=== PATIENT | male | born 1940 | race Caucasian/White ===

== ENCOUNTER 2017-08-31 13:33 | Day surgery (SDC) | payer MEDICARE, OTHER, SELFPAY ==
[2017-08-24 12:03] VITALS: BMI 52.4
[2017-08-31] VITALS (11 sets, daily range): BP systolic 128–176; BP diastolic 70–96; PULSE 64–124; RESP 16–20; TEMP 36.4–36.9; O2SAT 92–98; BMI 23.6
--- NOTE | 2017-08-31 09:55 | SUR.OPER ---
Prone on spine table, head in foam head support, padded chest and pelvic supports, gel pad at knees, lower legs supported by pillows; nipples, genitalia and toes free of pressure, arms secured on foam padded arm boards at <90 degrees abduction. Tape over blanket at thigh secured to table.
[2017-08-31] MEDS: LACTATED RINGERS 1,000 ML 42 ML IV ×2 (14:28→16:44)
--- NOTE | 2017-08-31 15:28 | PM.PREOP ---
Pre-operative Note Interval Note Pre-op Check: History & Physical Reviewed by Physician, Exam Performed and History & Physical exam performed today
[2017-08-31] MEDS: CEFAZOLIN 2 GM/100 ML FROZ.PIGGY IV ×2 (15:29→23:45)
--- NOTE | 2017-08-31 15:55 | SUR.OPER ---
Prone on spine table, head in foam head support, padded chest and pelvic supports, gel pad at knees, lower legs supported by pillows; nipples, genitalia and toes free of pressure, arms secured on foam padded arm boards at <90 degrees abduction. Tape over blanket at thigh secured to table.left sided port padded with memory foam padding to protect skin from pressure during prone positioning
--- NOTE | 2017-08-31 16:00 | DI.RAD.S_ITS ---
PROCEDURE: XR LUMBAR SPINE 1V INDICATIONS: L3-4 LAMINECTOMY TECHNIQUE: 1 views of the lumbar spine were acquired. COMPARISON: [facility], MR, MR LUMBAR SPINE WITHOUT CONTRAST, 03/15/2017, 11:17. FINDINGS: Lateral view of the lumbar spine performed in the operating room demonstrates a radiopaque surgical probe projected over the posterior elements at the L3 level. IMPRESSION: Surgical probe projected over the posterior elements at the L3 level for operative planning. Dictated by: Luis MUELLER Interpreted: Romel Montanez MD on 08/31/2017 at 16:14 Approved by: Misbah Montanez M.D. on 08/31/2017 at 16:37
[2017-08-31] MEDS: BUPIVACAINE 0.25% W/ EPI 50 ML VIAL INJ (16:04)
--- NOTE | 2017-08-31 16:59 | P.OP_ITS ---
Operative Date/Time/Diagnoses - Date of procedure: 08/31/17 Time of procedure: 14:51 Pre-op diagnosis: 1. L3-4 spinal stenosis 2. Neurogenic claudication Post-op diagnosis: same Procedure & Clinicians Procedure: 1. L3-4 laminectomy with bilateral partial facetecomies 2. Utilization of microsurgical technique and operating microscope Same procedure as scheduled: Yes Indications: Patient has been having chronic back pain and worsening lumbar radiculopathy. Patient failed multiple conservative management with worsening pain weakness and numbness in her lower extremity. Patient has been having difficulty performing activity of daily living. After discussing risks benefits of treatment options, patient elected proceed with surgery. Surgeon: Yumiko Benavides Senior Windows Engineer: Marisa Marinelli Click Yes if Unassisted: No Anesthesia Type: General Operative Notes Closure Type: primary Specimen(s): none sent Estimated Blood Loss (mL): 50 Blood products transfused: none Procedure in detail: Patient was seen in the preoperative area. Risks and benefits of the surgery was discussed with the patient. Informed consent was obtained from the patient and placed in the chart. Surgical site was marked. Patient was taken to the operative room. General anesthesia was administered. Prophylactic antibiotic was given to the patient less than 30 min before the incision was made. Patient was placed into a prone position on the Jonh table. Patient's back was then prepped and draped in the sterile fashion. Time- out was performed at this time. Using AP and lateral C-arm imaging the interval between L3-4 was identified and marked on patient's back. A 2 inch incision in the midline was made over the L3 -4 interval. The fascia was incised in line with skin incision. Self retaining retractors was placed inside the incision after dissecting down to the level of the lamina with holm and bovie. Using microsurgical technique and operating microscope, a L3-4 laminectomy was performed using a Kerrison rongeur and a drill. Liagamentum flavum was resected at the site of the laminotomy. Either side of the dura was exposed. Bilateral partial facetcomies was performed to further decompress the lateral recess. Patient has severe thecal sac compression from the hypertrophied ligamentum flavum which was fully resected at the site of the laminectomy. Patient's thecal sac and bilateral lateral recess was fully decompressed when the laminectomy was completed. After the laminectomy was completed, the area medial lateral superior and inferior to the area of the laminectomy was inspected and explored using a micro curette. No other impinging structure was identified. The wound was then irrigated with sterile normal saline. The deep fascia was closed with 1-0 Vicryl. The subcutaneous tissue was closed with 2-0 Vicryl. The skin was closed with 3-0 nylon suture. Patient tolerated the procedure well. There were no complications. Patient was transferred recovery room in stable condition. Complications: none Condition: stable Disposition: Acute Care Plan for aftercare: Admit overnight
[2017-08-31] MEDS: SODIUM CHLORIDE 0.9% 1,000 ML 100 ML IV (18:06)
[2017-08-31] MEDS: OXYCODONE IR 5 MG TABLET PO ×2 (20:03→23:35)
[2017-08-31] MEDS: ALPRAZolam 0.25 MG TABLET 0.125 MG PO (21:05)
[2017-08-31] MEDS: ROPINIROLE 1 MG TABLET PO (21:05)
--- NOTE | 2017-08-31 22:20 | PC.NURSE ---
POST-OP Received pt at approximately 4730 via bed, accompanied by ERP ANALYST. A&Ox3, pleasant and cooperative with care. states some very mild numbness with LLE initially which has now resolved. pt very mobile, able to ambulate with 1P SBA to bathroom and in hallways. no complaints of nausea, tolerating PO intake without difficulties. c/o minimal incisional pain, rated 4/10, medicated with PRN oxycodone. back dressing CDI. pt requesting to have MIVF decreased since he is taking PO intake very well. pt also requesting to be assessed by PT first thing in the morning for soonest possible D/C home tomorrow.
[2017-08-31] MEDS: SODIUM CHLORIDE 0.9% FLUSH 10 ML IV (23:45)
--- NOTE | 2017-08-31 23:52 | PC.NURSE ---
Addendum entered by Olga Galvan R.N. 09/01/17 03:31: Patient complains of 6/10 back pain and not able to get comfortable. Discussed med options, IV vs po, since patient is hoping to DC today. Patient determined he needed IV Dilaudid at this time and then will try to switch to po Oxycodone in couple hours. Original Note: Addendum entered by Olga Galvan R.N. 09/01/17 01:27: Upon reassessment earlier for pain patient stated his pain was unchanged and requesting additional pain meds. Medicated with Vistaril and patient also insisted he take ordered IV Dilaudid. Currently states his pain is 2/10 and very tolerable. Original Note: Alert and oriented. Breath sounds CTA with RA sat of 95-96%. HRR. Denies nausea. BT hypoactive but states he is passing flatus. Denies dysuria or urgency but complains of frequency related to IVF continuous infusion. Independent with bed mobility and SBA when up to bathroom. Dressing to back is CDI. States back pain currently 5/10; medicated with Oxycodone but refused ice pack. 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 Fall risk score is medium and bed alarm is activated. Hoping to DC in morning.
[2017-09-01] MEDS: hydrOXYzine pamoate 25 MG CAPSULE PO ×2 (00:22→05:29)
[2017-09-01] MEDS: HYDROMORPHONE 0.5 MG INJ IV ×2 (00:25→03:26)
[2017-09-01] MEDS: SODIUM CHLORIDE 0.9% FLUSH 10 ML IV ×3 (00:25→08:19)
[2017-09-01] MEDS: OXYCODONE IR 5 MG TABLET PO ×2 (05:29→10:54)
[2017-09-01 05:32] VITALS: BP 140/91; PULSE 70; RESP 16; TEMP 36.6; O2SAT 95
[2017-09-01 06:33] LABS: Hematocrit 36.5 % (41-53); Hemoglobin 12.1 g/dL (13.5-17.5)
[2017-09-01] MEDS: LISINOPRIL 20 MG TABLET PO (08:11)
[2017-09-01] MEDS: CEFAZOLIN 2 GM/100 ML FROZ.PIGGY IV (08:12)
[2017-09-01] MEDS: DOCUSATE 100 MG CAPSULE PO (08:12)
--- NOTE | 2017-09-01 09:39 | OT.IP.TRT ---
Current Diagnoses Spinal stenosis, lumbar region without neurogenic claudication (08/31/17) Surgery Performed Operation Date: 08/31/17 15:45 Actual Procedures p L3-4 Laminectomy - Yumiko Benavides MD Occupational Therapy Treatment Note M3 OT- IP Subjective and Pain Start: 09/01/17 09:36 Freq: Status: Active Protocol: Document 09/01/17 09:37 [facility] (Rec: 09/01/17 09:39 [facility] [id number]) OT- Subjective Occupational Therapy Visit Type Type Treatment Note Notes Pt doing great and to stay with a friend initially. Pt does not need any equipment. Therefore no OT eval needed. Pt hoping to be discharged today.
--- NOTE | 2017-09-01 10:16 | PT.IIE ---
Current Diagnoses Spinal stenosis, lumbar region without neurogenic claudication (08/31/17) Surgery Performed Operation Date: 08/31/17 15:45 Actual Procedures p L3-4 Laminectomy - Yumiko Benavides MD Surgical History (Last Updated 08/24/17 @ 12:21 by Sheryl Valentine, RN) History of total right hip arthroplasty (Acute) Hx of lithotripsy (Acute) Hx of tonsillectomy (Acute) Medical History (Last Updated 08/24/17 @ 12:21 by Sheryl Valentine RN) DJD (degenerative joint disease) (Acute) Diffuse large B cell lymphoma (Acute) HTN (hypertension) (Acute) Hepatitis C (Acute) History of nephrolithiasis (Acute) Insomnia (Acute) Normal colonoscopy (Acute) Numbness and tingling (Acute) Port-A-Cath in place (Acute) RLS (restless legs syndrome) (Acute) Spinal stenosis (Acute) Physical Therapy Inpatient Evaluation/Re-Eval M1 PT/OT-IP Prior Functional Status Start: 09/01/17 10:08 Freq: Status: Active Protocol: Document 09/01/17 09:23 [facility] (Rec: 09/01/17 10:16 [facility] [id number]) Medical Review Prior Functional Status Medical History Reviewed Yes Mobility and Gait Indep. without device community ambulation Activities of Daily Living and IADL's Indep. ADLs Social History Household Members none Living Arrangements House Number of Floors (Floors) One Floor Number of Stairs To Enter/Railing? 2 SE, no rails. Will stay with friend until he is safe to return indep. Home Environment Standard Height Toilet M2 PT-IP Current Condition Start: 09/01/17 10:08 Freq: Status: Active Protocol: Document 09/01/17 09:23 [facility] (Rec: 09/01/17 10:16 [facility] [id number]) Physical Therapy Current Condition Current Condition Evaluation Date 09/01/17 Treatment Diagnosis L3-4 laminectomy /c B partial fascectomies 08/31/17, impaired mobility Precautions Lumbar Precautions Log Roll No Twisting Limit Bending Lifting Restriction of 10 lbs Gait Belt above Incisional Area M3 PT-IP Subjective Start: 09/01/17 10:08 Freq: Status: Active Protocol: Document 09/01/17 09:23 [facility] (Rec: 09/01/17 10:16 [facility] [id number]) Subjective Physical Therapy Visit Type Type Initial Evaluation Visit Start Time 08:55 Visit Stop Time 09:23 Total Visit Minutes 28 Number of JIG BORING MACHINE OPERATOR FOR METAL Visits 0 Therapy Pain Assessment Pain When Pain Assessed At Rest Pain Present Pain Present Pain Reported Location Lower Back Intensity 2 Scale Used Numeric (1 - 10) Description Aching Pain Management Techniques Re-positioning Timing of Activity with Medications M4 PT-IP Mobility and Gait Start: 09/01/17 10:08 Freq: Status: Active Protocol: Document 09/01/17 09:23 [facility] (Rec: 09/01/17 10:16 [facility] [id number]) PT-Bed Mobility Assessment Rolling Type of Rolling Log Rolling Level of Assist Independent Supine to Sit Supine to Sit Independent Sit to Supine Sit to Supine Independent Scooting Scooting to Edge of Bed Independent Scooting Up and Down in Bed Independent PT-Transfer Assessment Sit to and From Stand Sit to and from Stand Independent Equipment Transfer Assistive Device None Transfers Transfer Destination Bed Chair Transfer Technique Stand Step Pivot Transfer Ability Level of Assist Independent Comments Mobility Comments no assistive device used. Gait Assessment Gait Gait Assistance Required: Independent Distance (Feet) (feet) 300 Assistive Devices Assistive Device Gait Belt Gait Deviations General Gait Pattern Within Normal Limits Factors Limiting Gait Function Factors Limiting Gait Function Pain Comments Gait Comments Step-through pattern, no LOB. Stair Climbing Assessment Evaluation Level of Assist On Stairs Independent Devices Stair Climbing Assistive Devices None Technique/Endurance Stair Climbing Direction Ascend and Descend Stair Climbing Technique Step Over Step Number of Steps Climbed 3 Query Text: Stair Climbing Set # Repetitions (reps) 1 Comments Stair Climbing Comments no rails used. PT-Balance Assessment Sitting Balance and Reactions Static Sitting Balance Ability Normal Dynamic Sitting Balance Ability Normal Standing Balance and Reactions Static Standing Balance Ability Normal Dynamic Standing Balance Ability Good M5 PT-IP Objective Assessments Start: 09/01/17 10:08 Freq: Status: Active Protocol: Document 09/01/17 09:23 [facility] (Rec: 09/01/17 10:16 [facility] [id number]) Orientation Orientation/Cognition Level of Alertness Alert Language Function Ability No Deficits Noted Safety Awareness Understands Safety Issues Memory Description No Deficits Noted Strength Lower Extremity Strength Assessment Right Impaired Comments Strength Comments R Great toe 4/5, all others 5/ 5 Coordination Assessment Gross Coordination Gross Coordination WNL Sensation Assessment Sensation Gross Sensation WNL Comments Sensation Comments pt reports pain and numbness down RLE gone post-surgery. Muscle Tone Muscle Tone WNL Yes M6 PT-IP Treatment Start: 09/01/17 10:08 Freq: Status: Active Protocol: Document 09/01/17 09:23 [facility] (Rec: 09/01/17 10:16 [facility] [id number]) Physical Therapy Treatment Education Education Provided Precautions Post-Op Packet Safety M7 PT-IP Assessment and Plan Start: 09/01/17 10:08 Freq: Status: Active Protocol: Document 09/01/17 09:23 [facility] (Rec: 09/01/17 10:16 [facility] [id number]) PT Summary Assessment and Plan Potential Rehabilitation Potential Excellent Status of Condition at Evaluation Stable Summary Impairments Pain Activity Tolerance Progress Towards Goals Safe For Discharge Assessment Summary POD #1 L3-4 laminectomy with bilateral fascectomies. Pt is indep. with all mobility, does not require an assistive device for transfers or gait. Pt is safe for d/c home when medically stable. He ambulated 300+ ft without a device, and can ascend/descend 3 steps without assistance or a rail. Pt does not require further ongoing physical therapy in the acute inpatient setting. Recommendations To Nursing Amount of Assist Needed Independent Discharge Recommendations PT Discharge Recommendations Home with Assistance Provider Visit Care Team Role Provider Type Yumiko Benavides MD Attending Provider Physician Specialty: Orthopedic Surgery
--- NOTE | 2017-09-01 10:34 | PM.DS.1 ---
History of Present Illness Date Patient Seen: 09/01/17 Time Patient Seen: 10:34 Chief complaint: *OPB*L3-4 laminectomy [id number] Narrative: Patient's pain is [id number]. Denies fever chills. No nausea vomiting. Has been up walking in the nog[place]. Otherwise without complaints this morning. Discharge Providers Consults: 08/31/17 17:42 Consult to Occupational Therapy Evaluate & Treat Comment: Physician Instructions: Evaluate and treat Consult to Physical Therapy Evaluate & Treat Comment: Physician Instructions: Evaluate and Treat Discharge provider: Mac Rousseau PA-C Summary Discharge Diagnosis: Status post L3-L4 laminectomy with bilateral partial facetectomies, utilization of microsurgical technique and operating microscope Hospital Course: Patient having chronic back pain and worsening lumbar radiculopathy. Patient failed multiple conservative management with worsening pain, weakness and numbness in his lower extremity. Patient had difficulty performing activities of daily living. Patient was admitted to the hospital for the above-mentioned procedure. Patient taken to the operating room underwent general anesthesia. Patient had L3-L4 laminectomy with partial bilateral facetectomies. Patient back in his room recovering well and is in stable condition. Status at Discharge Functional status at discharge: independent ambulation Overall status at discharge: patient is progressing back to baseline Time Spent with Patient Less than 30 minutes Exam Vital Signs (past 8 hours): Vital Signs - 8 hr 09/01/17 05:32 Temperature 97.8 F Pulse Rate 70 Respiratory Rate 16 Blood Pressure 140/91 H Pulse Oximetry 95 Pulse Oximetry 95 Oxygen Delivery Method Room Air Narrative Exam Narrative: Pleasant 76-year-old male resting comfortably in bed in no apparent distress. Dressing is clean, dry and intact. Neurovascular status is intact to the bilateral lower extremities. Objective Labs Result Diagrams: 09/01/17 06:14 Labs: Laboratory Results - last 24 hr 09/01/17 06:14 Hgb 12.1 L Hct 36.5 L Discharge Plan Discharge Plan Patient Disposition: Home, Self-Care Discharge comment: Stable status post L3-L4 laminectomy with bilateral partial facetectomies, use of microsurgical technique and operating microscope Discharge Med Rec/Prescriptions Prescriptions: New hydroxyzine pamoate 25 mg Capsule 25 mg PO Q4HR PRN (Reason: Nausea And Vomiting) Qty: 60 RF: 0 oxycodone 5 mg Tablet 5 mg PO Q3HR PRN (Reason: Pain, Moderate) Qty: 60 RF: 0 Continue sildenafil 100 mg Tablet 0.25 - 1 tab PO DAILY PRN (Reason: Erectile Dysfunction) RF: 0 alprazolam 0.25 mg Tablet 0.5 - 1 tab PO Q6H PRN (Reason: Insomnia) RF: 0 ropinirole 0.5 mg Tablet 2 - 3 tab PO BEDTIME PRN (Reason: restless leg syndrome) RF: 0 ibuprofen [Advil] 200 mg Tablet 200 mg PO BEDTIME RF: 0 lisinopril 40 mg Tablet 20 mg PO DAILY RF: 0 Follow up/Referrals: Yumiko Benavides MD [Physician] - (Follow up 10-14 days) Discharge Orders: Discharge (Order); Ordered 09/01/17 Ordered By: Mac Rousseau Provider Discharge Instructions Diet: Diet as Tolerated Activity: Limited bending, twisting, lifting Cold/Heat Therapy: Iced as needed Wound Care Report to your healthcare provider any signs of infection, such as:: chills, fever, increased pain and unusual drainage Dressing: Change as necessary Other wound treatment: Keep wound clean and dry Visit Report/Discharge Packet Stand Alone Forms: Surgery Discharge Discharge Data Attending Provider: Yumiko Benavides Quality VTE Deep Vein Thrombosis/Pulmonary Embolism Present on Admission: No
--- NOTE | 2017-09-01 10:37 | P.DS_ITS ---
History of Present Illness Date Patient Seen: 09/01/17 Time Patient Seen: 10:34 Chief complaint: *OPB*L3-4 laminectomy [id number] Narrative: Patient's pain is [id number]. Denies fever chills. No nausea vomiting. Has been up walking in the nogu[place]. Otherwise without complaints this morning. Discharge Providers Consults: 08/31/17 17:42 Consult to Occupational Therapy Evaluate & Treat Comment: Physician Instructions: Evaluate and treat Consult to Physical Therapy Evaluate & Treat Comment: Physician Instructions: Evaluate and Treat Discharge provider: Mac Rousseau PA-C Summary Discharge Diagnosis: Status post L3-L4 laminectomy with bilateral partial facetectomies, utilization of microsurgical technique and operating microscope Hospital Course: Patient having chronic back pain and worsening lumbar radiculopathy. Patient failed multiple conservative management with worsening pain, weakness and numbness in his lower extremity. Patient had difficulty performing activities of daily living. Patient was admitted to the hospital for the above-mentioned procedure. Patient taken to the operating room underwent general anesthesia. Patient had L3-L4 laminectomy with partial bilateral facetectomies. Patient back in his room recovering well and is in stable condition. Status at Discharge Functional status at discharge: independent ambulation Overall status at discharge: patient is progressing back to baseline Time Spent with Patient Less than 30 minutes Exam Vital Signs (past 8 hours): Vital Signs - 8 hr 3 09/01/17 05:32 Temperature 97.8 F Pulse Rate 70 Respiratory Rate 16 Blood Pressure 140/91 H Pulse Oximetry 95 Pulse Oximetry 95 Oxygen Delivery Method Room Air Narrative Exam Narrative: Pleasant 76-year-old male resting comfortably in bed in no apparent distress. Dressing is clean, dry and intact. Neurovascular status is intact to the bilateral lower extremities. Objective Labs Result Diagrams: 09/01/17 06:14 Labs: Laboratory Results - last 24 hr 09/01/17 06:14 Hgb 12.1 L Hct 36.5 L Discharge Plan Discharge Plan Patient Disposition: Home, Self-Care Discharge comment: Stable status post L3-L4 laminectomy with bilateral partial facetectomies, use of microsurgical technique and operating microscope Discharge Med Rec/Prescriptions Prescriptions: New hydroxyzine pamoate 25 mg Capsule 25 mg PO Q4HR PRN (Reason: Nausea And Vomiting) Qty: 60 RF: 0 oxycodone 5 mg Tablet 5 mg PO Q3HR PRN (Reason: Pain, Moderate) Qty: 60 RF: 0 Continue sildenafil 100 mg Tablet 0.25 - 1 tab PO DAILY PRN (Reason: Erectile Dysfunction) RF: 0 alprazolam 0.25 mg Tablet 0.5 - 1 tab PO Q6H PRN (Reason: Insomnia) RF: 0 ropinirole 0.5 mg Tablet 2 - 3 tab PO BEDTIME PRN (Reason: restless leg syndrome) RF: 0 ibuprofen [Advil] 200 mg Tablet 200 mg PO BEDTIME RF: 0 lisinopril 40 mg Tablet 20 mg PO DAILY RF: 0 Follow up/Referrals: Yumiko Benavides MD [Physician] - (Follow up 10-14 days) Discharge Orders: Discharge (Order); Ordered 09/01/17 Ordered By: Mac Rousseau Provider Discharge Instructions Diet: Diet as Tolerated Activity: Limited bending, twisting, lifting Cold/Heat Therapy: Iced as needed Wound Care Report to your healthcare provider any signs of infection, such as:: chills, fever, increased pain and unusual drainage Dressing: Change as necessary Other wound treatment: Keep wound clean and dry Visit Report/Discharge Packet Stand Alone Forms: Surgery Discharge Discharge Data Attending Provider: Yumiko Benavides Quality VTE Deep Vein Thrombosis/Pulmonary Embolism Present on Admission: No
--- NOTE | 2017-09-01 10:58 | PC.NURSE ---
Pt discharged, all questions adressed. Pt declined use of w/c and walked to private vehicle with family at side.
--- NOTE | 2017-09-01 13:33 | CM.DPNOTE ---
Met w/patient at bedside, introduced myself and role of DC environmental emergencies planner; Patient is found sitting up in bed, alert, oriented and pleasant during conversation. Patient is a retired medical provider, states his friend, Hamida will be transporting patient to home at discharge; Patient states has been OOB 6x this morning and is ready for discharge; No DC needs assessed; Discharge Planning/Care Management CM Discharge Assessment Start: 09/01/17 13:31 Freq: Status: Active Protocol: Document 09/01/17 13:31 [facility] (Rec: 09/01/17 13:32 T[facility] [id number]) Discharge Planning Assessment History Provided By Patient Has Patient been admitted in last 30 No days? Is this patient on Medicare? Yes Is the admit diagnosis the same? No Prior Living Arrangements House Household Members spouse none Type of transporation used prior to Drives own vehicle admit Independent with ADL's Yes Is patient alert and oriented? Yes Caregiver for Another No Discharge Plan Home Transportation Arrangement Patient friend Hamida will be picking patient up from the hospital and taking him home; Review Status Complete Next Review Type Discharge Review
== END 2017-09-01 10:59 | disposition home or self-care (01) ==
LOC: OR 13:35 → AC 17:42
PROVIDERS: Visit Provider Orthopaedic Surgery Orthopaedic Surgery of the Spine
PROC: (CPT 63047; principal; 2017-08-31 15:45)
DX: M48.062 Spinal stenosis, lumbar region with neurogenic claudication (principal); M54.16 Radiculopathy, lumbar region; I10 Essential (primary) hypertension
CPT/HCPCS: 63047; 72020; 76000; 85014; 85018; 97161; J0690; J1100; J1170; J2250; J2405; J2704; J3010